=== PATIENT | female | born 2000 | race Caucasian/White ===

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

== ENCOUNTER 2021-03-25 13:28 | Emergency (ER) | payer SELFPAY | END 2021-03-25 14:10 | disposition home or self-care (01) | LOC: MADERS 13:28 | DX: H57.89 Other specified disorders of eye and adnexa (principal); F17.210 Nicotine dependence, cigarettes, uncomplicated | CPT/HCPCS: 99282 ==

== ENCOUNTER 2021-07-27 13:50 | Emergency (ER) | payer SELFPAY | END 2021-07-27 14:20 | disposition home or self-care (01) | LOC: MADERS 13:50 | DX: J06.9 Acute upper respiratory infection, unspecified (principal); Z20.822 Contact with and (suspected) exposure to COVID-19; J45.909 Unspecified asthma, uncomplicated; F17.210 Nicotine dependence, cigarettes, uncomplicated | CPT/HCPCS: 99283; U0003; U0005 ==